=== PATIENT | male | born 1990 | race Caucasian/White ===

== ENCOUNTER 2020-03-07 14:05 | Emergency (ER) | payer SELFPAY ==
[~2020-03-07] VITALS: Ht 177.8 cm; Wt 61.4 kg
[2020-03-07 14:11] VITALS: BP 108/64
[2020-03-07] MEDS ORDERED: azithromycin 250mg tablet PO ONE (14:50)
[2020-03-07] MEDS ORDERED: CefTRIAXone 250MG inj IM ONE (14:50)
[2020-03-07] MEDS ORDERED: CefTRIAXone 250MG IM Kit w/LIDOcaine IM ONE (15:00)
== END 2020-03-07 15:38 | disposition home or self-care (01) ==
LOC: ER 14:06
DX: A64 Unspecified sexually transmitted disease (principal)
CPT/HCPCS: 36415; 87491; 87591; 96372; 99283; J0696